=== PATIENT | male | born 1940 | race Caucasian/White ===

== ENCOUNTER → 2017-10-28 14:49 | Outpatient (CLI) | payer MEDICARE, SELFPAY ==
[2017-10-28 15:26] LABS: Absolute Lymphocyte Count 1.94 X10^3/ul (0.83-4.51); Absolute Neutrophil Count 7.1 X10^3/uL (2.0-7.7); Basophil# 0.02 X10^3/uL; Basophil% 0.2 % (0-1); Eosinophil# 0.31 X10^3/uL; Hematocrit 43.3 % (40-54); Lymphocyte # 1.94 X10^3/ul (4.0); Lymphocyte % 18.7 % (19-41); Mean Corp Hgb Conc 34.6 g/gl (32-36); Mean Corpuscular Hgb 31.8 pg (27.0-32.0); Mean Corpuscular Volume 91.7 fL (80-94); Monocyte# 0.95 X10^3/uL; Monocyte% 9.2 % (0-10); Neutrophil # 7.11 X10^3/uL (2.7-7.7); Neutrophil % 68.6 % (47-70); POSITIVE COUNT NO; POSITIVE DIFFERENTIAL NO; POSITIVE MORPHOLOGY NO; Platelet Count 312 K/mm3 (150-450); RBC Distribution Width CV 12.6 % (11.6-14.6); RBC Distribution Width SD 41.3 fl (35.1-43.9); Red Blood Count 4.72 M/mm3 (4.6-6.2); White Blood Count 10.4 K/mm3 (4.4-11.0)
[2017-10-28 16:28] LABS: ALB/GLOB Ratio 0.9 RATIO (0.9-2.4); AST(SGOT) 25 U/L (15-37); Alanine Aminotransfer ALT/SGPT 31 U/L (16-61); Albumin, Serum 3.7 g/dL (3.2-5.0); Alkaline Phosphatase 128 U/L (45-117); Anion Gap 6 (5-15); BUN 18 mg/dL (7-18); BUN/Creat Ratio 11.5 RATIO (10-20); Calcium,Total 9.3 mg/dL (8.5-10.1); Chloride 103 mmol/L (98-107); Creatinine, Serum 1.56 mg/dL (0.70-1.30); EST Glomerular Filtration Rate 46 mL/min (>60); Est Glom Filt Rate - Afr Amer 56 mL/min (>60); Globulin 3.9 g/dL (2.2-4.2); Glucose 96 mg/dL (74-106); Potassium 4.6 mmol/L (3.5-5.1); Protein, Total 7.6 g/dL (6.4-8.2); Sodium Level 138 mmol/L (136-145); Thyroid Stim Hormone (TSH) 1.92 uIU/mL (0.358-3.74)
[2017-10-29 02:55] LABS: Rapid Plasmin Reagin (RPR) NONREACTIVE (NONREACTIVE)
[2017-10-29 08:42] LABS: Vitamin B12 577 pg/mL (211-911); Vitamin D,25 Hydroxy 35.4 ng/mL (29.95-100.01)
== END ==
PROVIDERS: Visit Provider Family Medicine Geriatric Medicine
DX: E11.9 Type 2 diabetes mellitus without complications (principal); F05 Delirium due to known physiological condition; E55.9 Vitamin D deficiency, unspecified; N39.0 Urinary tract infection, site not specified
CPT/HCPCS: 36415; 80053; 82306; 82607; 82746; 84443; 85025; 86592; 87077; 87086; 87088; 87186

== ENCOUNTER → 2017-11-10 09:25 | Outpatient (CLI) | payer MEDICARE, SELFPAY ==
--- NOTE | 2017-11-10 09:27 | AAVD_ITS ---
Reason For Study: AAA screening Aorta Measurements Aorta Doppler Measurements Proximal aorta measures2.0 x 2.0cm. in cross- Peak systolic flow velocities within the proximal sectional axis. aorta measure 62.0 cm/sec. Proximal aorta measures1.9cm. in longitudinal Peak systolic flow velocities within the mid axis. aorta measure 73.0 cm/sec. Mid aorta measures1.6 x 1.7cm. in cross-sectionalPeak systolic flow velocities within the distal axis. aorta measure 93.0 cm/sec. Mid aorta measures1.6cm. in longitudinal axis. Distal aorta measures1.3 x 1.5cm. in cross- sectional axis. Distal aorta measures1.3cm. in longitudinal axis. Left Iliac Artery Left iliac artery measures .82 cm. in the longitudinal axis. Left iliac artery measures .85 x .81 cm. in the cross-sectional axis. Peak systolic velocity in the left iliac artery measures 104.0 cm/sec. Right Iliac Artery Right iliac artery measures .81 cm. in the longitudinal axis. Right iliac artery measures .87 x .89 cm. in the cross-sectional axis. Peak systolic velocity in the right iliac artery measures 101.0 cm/sec. Procedure Aorta IVC Iliac vasculature or bypass grafts [id number]. Exam performed in department. Interpretation Summary The intra-abdominal aorta appears normal in caliber, without evidence of aneurysmal dilatation. The iliac arteries are also normal in size bilaterally. The intra-abdominal aorta and iliac arteries are patent, demonstrating normal, pulsatile arterial flow and normal peak systolic velocities. Ordering Physician: Gilbert Andrea Referring Physician: Gilbert Andrea Chi Performed By: Jaylene Maher RVT
== END ==
PROVIDERS: Family Provider Family Medicine Geriatric Medicine; PCP Family Medicine Geriatric Medicine; Visit Provider Family Medicine Geriatric Medicine
DX: I71.4 Abdominal aortic aneurysm, without rupture (principal)
CPT/HCPCS: 93978

== ENCOUNTER → 2018-01-04 11:20 | Outpatient (CLI) | payer MEDICARE, SELFPAY ==
[2018-01-04 12:54] LABS: Microalbumin:Creatinine Ratio 42.4 mg/g CRE (<30 mg/g CRE)
== END ==
PROVIDERS: Family Provider Family Medicine Geriatric Medicine; PCP Family Medicine Geriatric Medicine; Visit Provider Internal Medicine Nephrology
DX: R80.9 Proteinuria, unspecified (principal)
CPT/HCPCS: 82043; 82570

== ENCOUNTER → 2018-01-06 10:12 | Outpatient (CLI) | payer MEDICARE, SELFPAY ==
--- NOTE | 2018-01-06 10:15 | US_ITS ---
STUDY: RENAL ULTRASOUND - COMPLETE REASON FOR EXAM: Male, 77 years old. Renal cell carcinoma TECHNIQUE: Ultrasound evaluation of the kidneys was performed with real-time and static sinclair-scale imaging. COMPARISON: None. FINDINGS: RIGHT KIDNEY: Normal location of the right kidney, which is normal in size. The right kidney measures 9.6 x 4.8 x 5.0 cm. There is a normal cortex of the right kidney. The renal cortex measures 1.5 cm. There is a 1.1 x 1.1 x 1.0 cm hypoechoic/anechoic region of the right kidney. There are no right renal calculi. There is no right hydronephrosis. DISTAL RIGHT URETER: There is non-visualization of the distal right ureter. There is no demonstrated right ureterovesical junction calculus. There is no demonstrated right ureteral jet. LEFT KIDNEY: Normal location of the left kidney, which is normal in size. The left kidney measures 11.9 x 4.0 x 4.6 cm. There is a normal cortex of the left kidney. The renal cortex measures 1.5 cm. There are 2 left renal cysts measuring 1.1 x 1.3 x 1.0 cm and 1.5 x 1.5 x 1.4 cm. There are no left renal calculi. There is no left hydronephrosis. DISTAL LEFT URETER: There is non-visualization of the distal left ureter. There is no demonstrated left ureterovesical junction calculus. There is no demonstrated left ureteral jet. US/Kidney and Bladder IMPRESSION: 2 left renal cysts as detailed above. Hypoechoic/anechoic focus of the right kidney measuring 1.1 x 1.1 x 1.0 cm indeterminate for solid versus cystic structure. If clinically indicated, CT of the kidneys with and without contrast would be helpful for further evaluation. Electronically Signed: Aleksandr Flores MD at 16:06 EDT , Service support ,
== END ==
PROVIDERS: Family Provider Family Medicine Geriatric Medicine; PCP Family Medicine Geriatric Medicine; Visit Provider Internal Medicine Nephrology
DX: C64.9 Malignant neoplasm of unspecified kidney, except renal pelvis (principal)
CPT/HCPCS: 76770

== ENCOUNTER → 2018-04-19 15:56 | Outpatient (CLI) | payer MEDICARE, SELFPAY ==
[2018-04-19 17:14] LABS: Absolute Neutrophil Count 7.4 X10^3/uL (2.0-7.7); Basophil# 0.04 X10^3/uL; Basophil% 0.4 % (0-1); Eosinophil# 0.42 X10^3/uL; Eosinophils% 3.8 % (0-5); Hematocrit 44.5 % (40-54); Lymphocyte % 18.3 % (19-41); Mean Corp Hgb Conc 33.7 g/gl (32-36); Mean Corpuscular Hgb 31.9 pg (27.0-32.0); Mean Corpuscular Volume 94.7 fL (80-94); Mean Platelet Vol. 9.3 fl (6.2-12.0); Monocyte# 1.03 X10^3/uL; Monocyte% 9.4 % (0-10); Neutrophil # 7.39 X10^3/uL (2.7-7.7); Neutrophil % 67.6 % (47-70); Platelet Count 327 K/mm3 (150-450); RBC Distribution Width CV 13.5 % (11.6-14.6); RBC Distribution Width SD 45.1 fl (35.1-43.9); White Blood Count 10.9 K/mm3 (4.4-11.0)
[2018-04-19 17:18] LABS: POSITIVE COUNT NO; POSITIVE DIFFERENTIAL NO; POSITIVE MORPHOLOGY NO
[2018-04-19 18:01] LABS: ALB/GLOB Ratio 0.8 RATIO (0.9-2.4); AST(SGOT) 29 U/L (15-37); Alanine Aminotransfer ALT/SGPT 47 U/L (16-61); Albumin, Serum 3.3 g/dL (3.2-5.0); Alkaline Phosphatase 171 U/L (45-117); Anion Gap 9 (5-15); BUN 22 mg/dL (7-18); Calcium,Total 10.1 mg/dL (8.5-10.1); Chloride 107 mmol/L (98-107); Creatinine, Serum 1.57 mg/dL (0.70-1.30); EST Glomerular Filtration Rate 46 mL/min (>60); Est Glom Filt Rate - Afr Amer 56 mL/min (>60); Globulin 3.9 g/dL (2.2-4.2); Glucose 90 mg/dL (74-106); Protein, Total 7.2 g/dL (6.4-8.2); Sodium Level 144 mmol/L (136-145); Thyroid Stim Hormone (TSH) 2.05 uIU/mL (0.358-3.74)
[2018-04-20 08:52] LABS: Vitamin D,25 Hydroxy 45.4 ng/mL (29.95-100.01)
== END ==
PROVIDERS: Family Provider Family Medicine Geriatric Medicine; PCP Family Medicine Geriatric Medicine; Visit Provider Family Medicine Geriatric Medicine
DX: E11.9 Type 2 diabetes mellitus without complications (principal); I10 Essential (primary) hypertension; E55.9 Vitamin D deficiency, unspecified
CPT/HCPCS: 36415; 80053; 82306; 84443; 85025

== ENCOUNTER → 2018-07-18 14:22 | Outpatient (CLI) | payer MEDICARE, SELFPAY ==
[2018-07-18 17:25] LABS: Absolute Lymphocyte Count 1.83 X10^3/ul (0.83-4.51); Absolute Neutrophil Count 6.9 X10^3/uL (2.0-7.7); Basophil# 0.03 X10^3/uL; Basophil% 0.3 % (0-1); Eosinophil# 0.22 X10^3/uL; Eosinophils% 2.2 % (0-5); Hematocrit 46.4 % (40-54); Hemoglobin 15.5 g/dl (13.0-16.5); Lymphocyte # 1.83 X10^3/ul (4.0); Lymphocyte % 18.4 % (19-41); Mean Corp Hgb Conc 33.4 g/gl (32-36); Mean Corpuscular Volume 95.9 fL (80-94); Mean Platelet Vol. 9.4 fl (6.2-12.0); Monocyte# 0.92 X10^3/uL; Monocyte% 9.3 % (0-10); Neutrophil # 6.89 X10^3/uL (2.7-7.7); Neutrophil % 69.5 % (47-70); Platelet Count 301 K/mm3 (150-450); RBC Distribution Width CV 13.2 % (11.6-14.6); RBC Distribution Width SD 44.9 fl (35.1-43.9); Red Blood Count 4.84 M/mm3 (4.6-6.2); White Blood Count 9.9 K/mm3 (4.4-11.0)
[2018-07-18 17:41] LABS: AST(SGOT) 33 U/L (15-37); Alanine Aminotransfer ALT/SGPT 50 U/L (16-61); Albumin, Serum 3.7 g/dL (3.2-5.0); Alkaline Phosphatase 166 U/L (45-117); Anion Gap 11 (5-15); BUN 19 mg/dL (7-18); BUN/Creat Ratio 11.2 RATIO (10-20); Calcium,Total 9.8 mg/dL (8.5-10.1); Chloride 105 mmol/L (98-107); EST Glomerular Filtration Rate 42 mL/min (>60); Est Glom Filt Rate - Afr Amer 51 mL/min (>60); Globulin 3.8 g/dL (2.2-4.2); Glucose 87 mg/dL (74-106); Potassium 4.6 mmol/L (3.5-5.1); Protein, Total 7.5 g/dL (6.4-8.2); Sodium Level 142 mmol/L (136-145); Thyroid Stim Hormone (TSH) 2.03 uIU/mL (0.358-3.74)
[2018-07-18 17:44] LABS: Vitamin D,25 Hydroxy 42.4 ng/mL (29.95-100.01)
[2018-07-18 17:45] LABS: POSITIVE COUNT NO; POSITIVE DIFFERENTIAL NO; POSITIVE MORPHOLOGY NO
== END ==
PROVIDERS: Family Provider Family Medicine Geriatric Medicine; PCP Family Medicine Geriatric Medicine; Visit Provider Family Medicine Geriatric Medicine
DX: E11.9 Type 2 diabetes mellitus without complications (principal); I10 Essential (primary) hypertension; E55.9 Vitamin D deficiency, unspecified
CPT/HCPCS: 36415; 80053; 82306; 84443; 85025

== ENCOUNTER → 2018-11-16 14:11 | Outpatient (CLI) | payer MEDICARE, SELFPAY ==
[2018-07-08 12:55] VITALS: BMI 29.7
[2018-11-16 15:49] LABS: Absolute Lymphocyte Count 2.13 X10^3/ul (0.83-4.51); Absolute Neutrophil Count 7.1 X10^3/uL (2.0-7.7); Basophil# 0.04 X10^3/uL; Basophil% 0.4 % (0-1); Eosinophil# 0.26 X10^3/uL; Eosinophils% 2.5 % (0-5); Hematocrit 47.2 % (40-54); Hemoglobin 15.3 g/dl (13.0-16.5); Lymphocyte # 2.13 X10^3/ul (4.0); Lymphocyte % 20.6 % (19-41); Mean Corp Hgb Conc 32.4 g/gl (32-36); Mean Corpuscular Hgb 31.5 pg (27.0-32.0); Mean Corpuscular Volume 97.1 fL (80-94); Mean Platelet Vol. 9.3 fl (6.2-12.0); Monocyte# 0.81 X10^3/uL; Monocyte% 7.8 % (0-10); Neutrophil # 7.07 X10^3/uL (2.7-7.7); Neutrophil % 68.5 % (47-70); Platelet Count 323 K/mm3 (150-450); RBC Distribution Width CV 13.3 % (11.6-14.6); RBC Distribution Width SD 46.7 fl (35.1-43.9); Red Blood Count 4.86 M/mm3 (4.6-6.2); White Blood Count 10.3 K/mm3 (4.4-11.0)
[2018-11-16 15:54] LABS: ALB/GLOB Ratio 0.9 RATIO (0.9-2.4); AST(SGOT) 34 U/L (15-37); Alanine Aminotransfer ALT/SGPT 48 U/L (16-61); Albumin, Serum 3.4 g/dL (3.2-5.0); Alkaline Phosphatase 172 U/L (45-117); Anion Gap 9 (5-15); BUN 16 mg/dL (7-18); BUN/Creat Ratio 9.8 RATIO (10-20); Calcium,Total 9.2 mg/dL (8.5-10.1); Chloride 107 mmol/L (98-107); Creatinine, Serum 1.64 mg/dL (0.70-1.30); EST Glomerular Filtration Rate 44 mL/min (>60); Est Glom Filt Rate - Afr Amer 53 mL/min (>60); Globulin 3.8 g/dL (2.2-4.2); Glucose 144 mg/dL (74-106); Potassium 3.9 mmol/L (3.5-5.1); Protein, Total 7.2 g/dL (6.4-8.2); Sodium Level 143 mmol/L (136-145); Thyroid Stim Hormone (TSH) 2.13 uIU/mL (0.358-3.74)
[2018-11-16 15:57] LABS: Vitamin D,25 Hydroxy 37.9 ng/mL (29.95-100.01)
[2018-11-16 16:30] LABS: POSITIVE COUNT NO; POSITIVE DIFFERENTIAL NO; POSITIVE MORPHOLOGY NO
== END ==
PROVIDERS: Family Provider Family Medicine Geriatric Medicine; PCP Family Medicine Geriatric Medicine; Visit Provider Family Medicine Geriatric Medicine
DX: E11.9 Type 2 diabetes mellitus without complications (principal); I10 Essential (primary) hypertension; E55.9 Vitamin D deficiency, unspecified
CPT/HCPCS: 36415; 80053; 82306; 84443; 85025

== ENCOUNTER → 2018-11-29 13:41 | Outpatient (CLI) | payer MEDICARE, SELFPAY ==
[2018-07-08 12:55] VITALS: BMI 29.7
--- NOTE | 2018-11-29 13:45 | ECHOD_ITS ---
Reason For Study: SOB Procedure This was a 2D Doppler, Color Flow transthoracic echocardiogram. The study was technically difficult. Exam performed in department. Left Ventricle Normal LV size. Left ventricular systolic function is normal. The estimated ejection fraction is 60 %. No regional wall motion abnormalities noted. Right Ventricle Normal RV size. Normal systolic function. Atria Normal left atrium. Normal right atrium. No doppler evidence for ASD. Mitral Valve There is no mitral annular calcification. Normal mitral valve. Mild (1+) mitral valve insufficiency. Tricuspid Valve Normal tricuspid valve. Trivial tricuspid valve insufficiency. Right ventricular systolic pressure estimated to be 21 mmHg. Aortic Valve Trisinus/trileaflet aortic valve. Moderate focal aortic valve calcification. Pulmonic Valve The pulmonic valve is not well visualized. Trivial pulmonic valve insufficiency. Great Vessels Normal sized aortic root. Pericardium/Pleural No pericardial effusion. MMode/2D Measurements & Calculations LVIDd: 4.1 cm IVSd: 0.97 cm Ao root diam: 3.1 cm LVIDs: 2.7 cm LVPWd: 0.86 cm RVDd: 3.4 cm FS: 33.9 % LAV(MOD-bp): 42.9 ml LA A4 area: 16.3 cm2 LA dimension(2D): 3.7 cm LAV(MOD-bp) Indexed: 21.5 ml/m2 LAV(MOD-sp2): 41.4 ml LAV(MOD-sp4): 41.6 ml RA A4 area: 16.8 cm2 Doppler Measurements & Calculations MV E max julian: 66.3 cm/sec Lat Peak E' Julian: 5.2 cm/sec Med Peak E' Julian: 5.0 cm/sec MV A max julian: 54.4 cm/sec E/E' lat: 12.7 E/E' med: 13.2 MV E/A: 1.2 Ao V2 max: 137.1 cm/sec LV V1 max: 80.6 cm/sec PA V2 max: 90.4 cm/sec Ao max P.5 mmHg LV V1 max P.6 mmHg TR max julian: 203.7 cm/sec TR max P.6 mmHg Interpretation Summary The study was technically difficult. Left ventricular systolic function is normal. The estimated ejection fraction is 60 %. Mild (1+) mitral valve insufficiency. Trivial tricuspid valve insufficiency. Moderate focal aortic valve calcification. Trivial pulmonic valve insufficiency. Right ventricular systolic pressure estimated to be 21 mmHg. Transmitral diastolic flow velocities suggest diastolic dysfunction (pseudonormal pattern). Ordering Physician: Gilbert Andrea Referring Physician: Gilbert Andrea Chi Performed By: Marisol Howell, AARON, RVT
== END ==
PROVIDERS: Family Provider Family Medicine Geriatric Medicine; PCP Family Medicine Geriatric Medicine; Referring Provider Family Medicine Geriatric Medicine; Visit Provider Family Medicine Geriatric Medicine
DX: R06.02 Shortness of breath (principal)
CPT/HCPCS: 93306

== ENCOUNTER → 2019-01-17 13:44 | Outpatient (CLI) | payer MEDICARE, SELFPAY ==
[2019-01-05 15:29] VITALS: BMI 29.9
[2019-01-17 16:25] LABS: AST(SGOT) 32 U/L (15-37); Alanine Aminotransfer ALT/SGPT 47 U/L (16-61); Albumin, Serum 3.5 g/dL (3.2-5.0); Alkaline Phosphatase 164 U/L (45-117); Bilirubin, Direct 0.17 mg/dL (0.00-0.30); Cholesterol 162 mg/dL (200); Globulin 3.7 g/dL (2.2-4.2); High Density Lipoprotein 35 mg/dL; Protein, Total 7.2 g/dL (6.4-8.2); Triglycerides 210 mg/dL; Very Low Density Lipoprotein 42 mg/dL (5-40)
== END ==
PROVIDERS: Family Provider Family Medicine Geriatric Medicine; PCP Family Medicine Geriatric Medicine; Referring Provider Internal Medicine Cardiovascular Disease; Visit Provider Internal Medicine Cardiovascular Disease
DX: E78.5 Hyperlipidemia, unspecified (principal); I25.10 Atherosclerotic heart disease of native coronary artery without angina pectoris; E66.9 Obesity, unspecified
CPT/HCPCS: 36415; 80061; 80076

== ENCOUNTER → 2019-01-26 11:10 | Outpatient (CLI) | payer MEDICARE, SELFPAY ==
[2019-01-05 15:29] VITALS: BMI 29.9
[2019-01-26 12:32] LABS: Absolute Lymphocyte Count 1.39 X10^3/ul (0.83-4.51); Absolute Neutrophil Count 7.6 X10^3/uL (2.0-7.7); Basophil# 0.02 X10^3/uL; Basophil% 0.2 % (0-1); Eosinophil# 0.23 X10^3/uL; Eosinophils% 2.3 % (0-5); Hematocrit 46.1 % (40-54); Hemoglobin 15.3 g/dl (13.0-16.5); Lymphocyte # 1.39 X10^3/ul (4.0); Lymphocyte % 14.1 % (19-41); Mean Corp Hgb Conc 33.2 g/gl (32-36); Mean Corpuscular Hgb 31.7 pg (27.0-32.0); Mean Corpuscular Volume 95.4 fL (80-94); Mean Platelet Vol. 9.4 fl (6.2-12.0); Monocyte# 0.66 X10^3/uL; Monocyte% 6.7 % (0-10); Neutrophil # 7.57 X10^3/uL (2.7-7.7); Neutrophil % 76.6 % (47-70); Platelet Count 267 K/mm3 (150-450); RBC Distribution Width CV 12.8 % (11.6-14.6); RBC Distribution Width SD 44.6 fl (35.1-43.9); Red Blood Count 4.83 M/mm3 (4.6-6.2); White Blood Count 9.9 K/mm3 (4.4-11.0)
[2019-01-26 12:36] LABS: POSITIVE COUNT NO; POSITIVE DIFFERENTIAL NO; POSITIVE MORPHOLOGY NO
[2019-01-26 12:55] LABS: ALB/GLOB Ratio 0.8 RATIO (0.9-2.4); AST(SGOT) 29 U/L (15-37); Alanine Aminotransfer ALT/SGPT 47 U/L (16-61); Albumin, Serum 3.2 g/dL (3.2-5.0); Alkaline Phosphatase 167 U/L (45-117); Anion Gap 10 (5-15); BUN 14 mg/dL (7-18); BUN/Creat Ratio 7.7 RATIO (10-20); Calcium,Total 9.2 mg/dL (8.5-10.1); Chloride 108 mmol/L (98-107); Creatinine, Serum 1.83 mg/dL (0.70-1.30); EST Glomerular Filtration Rate 38 mL/min (>60); Est Glom Filt Rate - Afr Amer 47 mL/min (>60); Globulin 3.8 g/dL (2.2-4.2); Glucose 165 mg/dL (74-106); Sodium Level 144 mmol/L (136-145); Thyroid Stim Hormone (TSH) 2.05 uIU/mL (0.358-3.74)
== END ==
PROVIDERS: Family Provider Family Medicine Geriatric Medicine; PCP Family Medicine Geriatric Medicine; Visit Provider Family Medicine Geriatric Medicine
DX: F05 Delirium due to known physiological condition (principal)
CPT/HCPCS: 36415; 80053; 84443; 85025

== ENCOUNTER → 2019-05-17 11:26 | Outpatient (CLI) | payer MEDICARE, SELFPAY ==
[2019-01-05 15:29] VITALS: BMI 29.9
[2019-05-17 12:43] LABS: Absolute Lymphocyte Count 1.49 X10^3/uL (0.83-4.51); Basophil# 0.04 X10^3/uL; Basophil% 0.5 % (0-1); Eosinophil# 0.14 X10^3/uL; Eosinophils% 1.7 % (0-5); Hematocrit 46.9 % (40-54); Hemoglobin 15.5 g/dL (13.0-16.5); Lymphocyte # 1.49 X10^3/ul (4.0); Lymphocyte % 18.3 % (19-41); Mean Corpuscular Hgb 31.7 pg (27.0-32.0); Mean Corpuscular Volume 95.9 fL (80-94); Mean Platelet Vol. 9.3 fl (6.2-12.0); Monocyte# 0.44 X10^3/uL; Monocyte% 5.4 % (0-10); NRBC Flagged by Analyzer 0 % (0-5); Neutrophil # 6.02 X10^3/uL (2.7-7.7); Neutrophil % 73.9 % (47-70); Platelet Count 304 K/mm3 (150-450); RBC Distribution Width CV 12.4 % (11.6-14.6); RBC Distribution Width SD 43.2 fl (35.1-43.9); Red Blood Count 4.89 M/mm3 (4.6-6.2); White Blood Count 8.2 K/mm3 (4.4-11.0)
[2019-05-17 13:02] LABS: Vitamin D,25 Hydroxy 47.4 ng/mL (29.95-100.01)
[2019-05-17 13:27] LABS: ALB/GLOB Ratio 0.9 RATIO (0.9-2.4); AST(SGOT) 29 U/L (15-37); Alanine Aminotransfer ALT/SGPT 34 U/L (16-61); Albumin, Serum 3.3 g/dL (3.2-5.0); Alkaline Phosphatase 187 U/L (45-117); Anion Gap 6 (5-15); BUN 16 mg/dL (7-18); BUN/Creat Ratio 8.9 RATIO (10-20); Calcium,Total 9.2 mg/dL (8.5-10.1); Chloride 108 mmol/L (98-107); Creatinine, Serum 1.79 mg/dL (0.70-1.30); EST Glomerular Filtration Rate 39 mL/min (>60); Est Glom Filt Rate - Afr Amer 48 mL/min (>60); Globulin 3.8 g/dL (2.2-4.2); Glucose 234 mg/dL (74-106); Potassium 4.2 mmol/L (3.5-5.1); Protein, Total 7.1 g/dL (6.4-8.2); Sodium Level 140 mmol/L (136-145)
== END ==
PROVIDERS: Family Provider Family Medicine Geriatric Medicine; PCP Family Medicine Geriatric Medicine; Visit Provider Family Medicine Geriatric Medicine
DX: E11.9 Type 2 diabetes mellitus without complications (principal); N39.0 Urinary tract infection, site not specified; E55.9 Vitamin D deficiency, unspecified
CPT/HCPCS: 36415; 80053; 82306; 84443; 85025; 87086; 87088

== ENCOUNTER → 2019-06-26 15:46 | Outpatient (CLI) | payer MEDICARE, SELFPAY ==
[2019-01-05 15:29] VITALS: BMI 29.9
[2019-06-26 17:28] LABS: Absolute Lymphocyte Count 1.35 X10^3/uL (0.83-4.51); Absolute Neutrophil Count 9.1 X10^3/uL (2.0-7.7); Basophil# 0.07 X10^3/uL; Basophil% 0.6 % (0-1); Eosinophils% 1.7 % (0-5); Hematocrit 48.6 % (40-54); Lymphocyte # 1.35 X10^3/ul (4.0); Lymphocyte % 11.7 % (19-41); Mean Corp Hgb Conc 32.9 g/dL (32-36); Mean Corpuscular Hgb 31.5 pg (27.0-32.0); Mean Corpuscular Volume 95.7 fL (80-94); Mean Platelet Vol. 9.1 fl (6.2-12.0); Monocyte# 0.78 X10^3/uL; Monocyte% 6.7 % (0-10); NRBC Flagged by Analyzer 0 % (0-5); Neutrophil # 9.13 X10^3/uL (2.7-7.7); Platelet Count 306 K/mm3 (150-450); RBC Distribution Width CV 12.6 % (11.6-14.6); RBC Distribution Width SD 44.3 fl (35.1-43.9); Red Blood Count 5.08 M/mm3 (4.6-6.2); White Blood Count 11.6 K/mm3 (4.4-11.0)
--- NOTE | 2019-06-26 17:30 | RAD_ITS ---
STUDY: X-RAY - ABDOMEN/PELVIS REASON FOR EXAM: Male, 78 years old. Patient states he has no abdominal complains, no change in bowel habits TECHNIQUE: AP supine and upright views of the abdomen and pelvis. COMPARISON: None. FINDINGS: Normal visualized lung bases. There is an unremarkable bowel gas pattern. There is no demonstrated free abdominal air. The visualized liver, spleen and kidneys are grossly normal in size and morphology. Normal soft tissue structures. There are diffuse degenerative changes of the visualized lumbar spine. RAD/Abd Inc Decub and/or Erect IMPRESSION: No definite acute or significant abnormality seen. Electronically Signed: Tanmay Saldivar MD at 17:47 EDT , Service support ,
[2019-06-26 17:50] LABS: ALB/GLOB Ratio 0.8 RATIO (0.9-2.4); AST(SGOT) 28 U/L (15-37); Alanine Aminotransfer ALT/SGPT 43 U/L (16-61); Albumin, Serum 3.2 g/dL (3.2-5.0); Alkaline Phosphatase 174 U/L (45-117); Anion Gap 6 (5-15); BUN 15 mg/dL (7-18); BUN/Creat Ratio 8.5 RATIO (10-20); Calcium,Total 9.2 mg/dL (8.5-10.1); Chloride 105 mmol/L (98-107); Creatinine, Serum 1.77 mg/dL (0.70-1.30); EST Glomerular Filtration Rate 40 mL/min (>60); Est Glom Filt Rate - Afr Amer 48 mL/min (>60); Globulin 3.9 g/dL (2.2-4.2); Glucose 218 mg/dL (74-106); Potassium 4.3 mmol/L (3.5-5.1); Protein, Total 7.1 g/dL (6.4-8.2); Sodium Level 140 mmol/L (136-145); Thyroid Stim Hormone (TSH) 0.99 uIU/mL (0.358-3.74)
== END ==
PROVIDERS: Family Provider Family Medicine Geriatric Medicine; PCP Family Medicine Geriatric Medicine; Referring Provider Family Medicine Geriatric Medicine; Visit Provider Family Medicine Geriatric Medicine
DX: F05 Delirium due to known physiological condition (principal); N39.0 Urinary tract infection, site not specified; R53.83 Other fatigue; K56.41 Fecal impaction
CPT/HCPCS: 36415; 74019; 80053; 84443; 85025; 87086; 87088

== ENCOUNTER 2019-07-16 15:53 | Emergency (ER) | payer MEDICARE, SELFPAY ==
[2019-01-05 15:29] VITALS: BMI 29.9
[2019-07-16 15:54] VITALS: BP 125/67; PULSE 111; RESP 24; TEMP 36.6; O2SAT 98; BMI 28.0
--- NOTE | 2019-07-16 16:20 | EKG12_ITS ---
Test Reason : CONFUSION Blood Pressure : / mmHG Vent. Rate : 087 BPM Atrial Rate : 087 BPM P-R Int : 160 ms QRS Dur : 068 ms QT Int : 386 ms P-R-T Axes : 064 068 055 degrees QTc Int : 464 ms Normal sinus rhythm with sinus arrhythmia Normal ECG Confirmed by GAUDENCIO BELTRAN MD ([id number]), magazine editor YANET FLOYD ([id number]) on 07/18/2019 11:45:29 AM Referred By: IDA
--- NOTE | 2019-07-16 16:20 | CT_ITS ---
STUDY: CT BRAIN WITHOUT CONTRAST REASON FOR EXAM: Male, 78 years old. Altered mental status RADIATION DOSAGE (If Supplied By Facility): CTDIvol = ( 44.99 ) mGy, DLP = ( 745.49 ) mGycm TECHNIQUE: Transaxial CT imaging of the brain was performed without administration of intravenous contrast material. Individualized dose optimization techniques were used for this CT. COMPARISON: 07/15/2017 FINDINGS: There is no acute bleed or infarct. There are normal white matter tracts. The ventricles are normal in configuration. There is no hydrocephalus. The visualized paranasal sinuses are clear. The mastoid air cells are well aerated. There is no skull fracture. CT/Brain/Head without Contrast IMPRESSION: No acute intracranial abnormality. Electronically Signed: Kenneth Valdez, at 18:15 EST Tel , Service support ,
--- NOTE | 2019-07-16 16:20 | RAD_ITS ---
STUDY: X-RAY CHEST REASON FOR EXAM: Male, 78 years old. Fusion TECHNIQUE: Frontal view of the chest COMPARISON: 10/22/2016 FINDINGS: The lungs are clear. There are no pleural effusions. There is no pneumothorax. The heart is normal in size. The visualized osseous structures are within normal limits. RAD/Chest 1 View (Portable) IMPRESSION: No acute thoracic pathology. Electronically Signed: Kenneth Valdez, at 16:48 EST Tel , Service support ,
[2019-07-16 16:38] LABS: Absolute Lymphocyte Count 1.95 X10^3/uL (0.83-4.51); Absolute Neutrophil Count 4.7 X10^3/uL (2.0-7.7); Basophil# 0.06 X10^3/uL; Basophil% 0.8 % (0-1); Eosinophil# 0.43 X10^3/uL; Eosinophils% 5.5 % (0-5); Hematocrit 45.9 % (40-54); Hemoglobin 15.3 g/dL (13.0-16.5); Lymphocyte # 1.95 X10^3/ul (4.0); Mean Corp Hgb Conc 33.3 g/dL (32-36); Mean Corpuscular Hgb 31.4 pg (27.0-32.0); Mean Corpuscular Volume 94.1 fL (80-94); Mean Platelet Vol. 8.6 fl (6.2-12.0); Monocyte% 7.7 % (0-10); NRBC Flagged by Analyzer 0 % (0-5); Neutrophil # 4.72 X10^3/uL (2.7-7.7); Neutrophil % 60.6 % (47-70); Platelet Count 329 K/mm3 (150-450); RBC Distribution Width CV 12.7 % (11.6-14.6); RBC Distribution Width SD 43.6 fl (35.1-43.9); Red Blood Count 4.88 M/mm3 (4.6-6.2); White Blood Count 7.8 K/mm3 (4.4-11.0)
[2019-07-16 16:44] LABS: Bacteria 0 SEEN /hpf (None Seen); Mucous, Urine 0 SEEN /hpf (<or=2+)
[2019-07-16 16:48] LABS: Color, Urine Yellow (Yellow); Glucose, Dipstick Normal (Normal); Ketone-Dipstick 5 mg/dl (Negative); Leukocyte Esterase-Dipstick 100 /ul (Negative); Nitrite-Dipstick Negative (Negative); Occult Blood-Urine 10 /ul (Negative); Protein-Dipstick 30 mg/dl (Negative); Specific Gravity, Urine 1.025 (1.002-1.030); Urine Bilirubin Dipstick Negative (Negative); Urine Clarity Cloudy (Clear); Urine Urobilinogen Normal (Normal)
[2019-07-16 16:52] LABS: ALB/GLOB Ratio 0.8 RATIO (0.9-2.4); AST(SGOT) 31 U/L (15-37); Alanine Aminotransfer ALT/SGPT 40 U/L (16-61); Albumin, Serum 3.2 g/dL (3.2-5.0); Alkaline Phosphatase 152 U/L (45-117); Anion Gap 9 (5-15); BUN 11 mg/dL (7-18); Calcium,Total 9.1 mg/dL (8.5-10.1); Chloride 104 mmol/L (98-107); Creatinine, Serum 1.58 mg/dL (0.70-1.30); EST Glomerular Filtration Rate 45 mL/min (>60); Est Glom Filt Rate - Afr Amer 55 mL/min (>60); Estimated Creatinine Clearance 39.77 ml/min; Globulin 3.9 g/dL (2.2-4.2); Glucose 196 mg/dL (74-106); Potassium 4.1 mmol/L (3.5-5.1); Protein, Total 7.1 g/dL (6.4-8.2); Sodium Level 140 mmol/L (136-145)
[2019-07-16 16:54] LABS: Red Blood Cells-Urine 0-5 SEEN /hpf (0-5); Squamous Epithelial Cells - UA 0-5 SEEN /hpf (0-5); White Blood Cells 10-25 SEEN /hpf (0-5)
[2019-07-16 17:03] LABS: Amphetamine Urine VISTA NEGATIVE (<1000 ng/mL); Barbiturate Urine VISTA NEGATIVE (< 200 ng/mL); Benzodiazepine Urine VISTA NEGATIVE (< 200 ng/mL); Cocaine Urine VISTA NEGATIVE (< 300 ng/mL); Ecstacy Urine VISTA NEGATIVE (< 500 ng/mL); Methadone Urine VISTA NEGATIVE (< 300 ng/mL); PCP Urine VISTA NEGATIVE (< 25 ng/mL); THC Urine VISTA NEGATIVE (< 50 ng/mL); Vista UDS pH Range 6
[2019-07-16 17:22] VITALS: RESP 14
[2019-07-16 17:49] LABS: Thyroid Stim Hormone (TSH) 1.73 uIU/mL (0.358-3.74)
--- NOTE | 2019-07-16 18:27 | ED.DCSUM_ITS ---
History of Present Illness Informant: Patient, Family Narrative: 78-year-old male presents with fatigue and slight confusion. History obtained from patient and his . states that he has had chronic fatigue over the last 3 years. He normally sleeps into the afternoon. States that today he slept till 3 PM. This is not unusual for him. States that she felt he seemed confused briefly. Said that he went to the garage looking for food. Denies any other complaints. She himself is alert and oriented x3. He denies any complaints. Denies any headache, chest pain, dyspnea, nausea, vomiting diaphoresis or dyspnea. Denies any dysuria or diarrhea. Of note patient has a history of a cardiac arrest. This happened 3 years ago. He was admitted to [facility], then transferred to [facility]. He then had a CABG. He was found to have an anoxic brain injury. states that his chronic fatigue began at that time. <Philip Ramirez - Last Filed: 07/16/19 19:17> Onset: Today <Dasha Springer - Last Filed: 07/22/19 10:58> Chief Complaint: Confusion Past Medical History Surgical History: - - partial nephrectemy. Smoking Status: Former smoker - Family History Maternal Family History: Family History (Last Reviewed 01/05/19 @ 15:20 by Lidia Santana) Father CAD (coronary artery disease) Family History: Reports: Unknown <Philip Ramirez - Last Filed: 07/16/19 19:17> Past Medical History: - - CAD, CKD, Paroxymal A fib, DM2, Hx V fib arrest, Hx renal cancer Surgical History: - - partial nephrectemy, CABG Lives: Spouse/ Significant Other - Family History Maternal Family History: Family History (Last Reviewed 01/05/19 @ 15:20 by Lidia Santana) Father CAD (coronary artery disease) <Dasha Springer - Last Filed: 07/22/19 10:58> - Allergies and Home Meds Allergies/Adverse Reactions: Allergies Sulfa (Sulfonamide Antibiotics) Allergy (Verified 07/16/19 17:16) Unknown Primary Care Physician: Gilbert Andrea Chi, MD [Primary Care Provider] - 3-5 Days Review of Systems General: Denies: Chills, Fever, Sweats Eyes: Denies: Visual changes - bilaterally, Diplopia ENT: Denies: Rhinorrhea, Sore throat Cardiovascular: Denies: Chest pain, Palpitations Respiratory: Denies: Dyspnea, Cough, Dyspnea on exertion Gastrointestinal: Denies: Abdominal pain, Nausea, Vomiting, Diarrhea, Melena, Hematochezia Genitourinary: Denies: Dysuria, Hematuria, Frequency Musculoskeletal: Denies: Back pain, Extremity Pain Skin: Denies: Rash, Wounds Neurological: Reports: - - Confusion per the . Denies: Headache, Weakness, Numbness <Philip Ramirez - Last Filed: 07/16/19 19:17> General: Reports: Malaise Neurological: Reports: - <Dasha Springer - Last Filed: 07/22/19 10:58> Physical Exam Vital Signs/Narrative: Vital Signs Temp Pulse Resp BP Pulse Ox 07/16/19 17:22 14 07/16/19 15:54 97.9 F 111 H 24 H 125/67 H 98 General: Well nourished, Well developed, No Acute Distress Head: Normocephalic, Atraumatic Eyes: Perrl, EOMI ENT: Moist mucous membranes, No rhinorrhea Neck: Supple, Nontender Cardiovascular: Regular rate, Regular rhythm, No murmurs Respiratory: No distress, CTA bilaterally, Chest nontender Abdomen: Soft, Nontender, Nondistended, Normal bowel sounds Back: Nontender, Normal Inspection Extremities: Nontender, No edema Skin: Normal color, No rash Neurological: Alert, Oriented x3, Cranial nerves II-XII grossly intact, Normal Strength, Normal Sensation, - - alert and oriented x3. No distress. Appears well and nontoxic. No Focal deficits on exam Psychological: Normal affect, Normal Mood <Philip Ramirez - Last Filed: 07/16/19 19:17> Inital Vital Signs reviewed: Yes <Dasha Springer - Last Filed: 07/22/19 10:58> Diagnostic/Tx/Re-eval Clinical Impression(s) from Imaging Studies Brain CT 07/16/19 16:20 IMPRESSION: No acute intracranial abnormality. Electronically Signed: Kenneth Valdez, at 18:15 EST Tel , Service support , Chest X-Ray 07/16/19 16:20 IMPRESSION: No acute thoracic pathology. Electronically Signed: Kenneth Valdez, at 16:48 EST Tel , Service support , Laboratory Data 07/16/19 07/16/19 07/16/19 16:10 16:10 16:10 WBC 7.8 RBC 4.88 Hgb 15.3 Hct 45.9 MCV 94.1 H MCH 31.4 MCHC 33.3 RDW Std Deviation 43.6 RDW Coeff of Iliana 12.7 Plt Count 329 MPV 8.6 Immature Gran % (Auto) 0.400 Neut % (Auto) 60.6 Lymph % (Auto) 25.0 Russell % (Auto) 7.7 Eos % (Auto) 5.5 H Baso % (Auto) 0.8 Absolute Neuts (auto) 4.7 Absolute Lymphs (auto) 1.95 Nucleated RBC % 0 Sodium 140 Potassium 4.1 Chloride 104 Carbon Dioxide 27.0 Anion Gap 9 BUN 11 Creatinine 1.58 H Estim Creat Clear Calc 39.77 Est GFR (MDRD) Af Amer 55 L Est GFR (MDRD) Non-Af 45 L BUN/Creatinine Ratio 7.0 L Glucose 196 H Calcium 9.1 Total Bilirubin 0.70 AST 31 ALT 40 Alkaline Phosphatase 152 H Troponin I < 0.015 Total Protein 7.1 Albumin 3.2 Globulin 3.9 Albumin/Globulin Ratio 0.8 L TSH 1.73 Urine Color Urine Clarity Urine pH Ur Specific [place] Urine Protein Urine Glucose (UA) Urine Ketones Urine Occult Blood Urine Nitrite Urine Bilirubin Urine Urobilinogen Ur Leukocyte Esterase Urine RBC Urine WBC Ur Squamous Epith Cells Urine Bacteria Urine Mucus Urine Opiates Screen Urine Methadone Screen Ur Barbiturates Screen Ur Phencyclidine Scrn Ur Amphetamines Screen U Methamphetamin-MDMA U Benzodiazepines Scrn Urine Cocaine Screen U Cannabinoids Screen Ur Drug Screen Comment 07/16/19 07/16/19 16:38 16:38 WBC RBC Hgb Hct MCV MCH MCHC RDW Std Deviation RDW Coeff of Iliana Plt Count MPV Immature Gran % (Auto) Neut % (Auto) Lymph % (Auto) Russell % (Auto) Eos % (Auto) Baso % (Auto) Absolute Neuts (auto) Absolute Lymphs (auto) Nucleated RBC % Sodium Potassium Chloride Carbon Dioxide Anion Gap BUN Creatinine Estim Creat Clear Calc Est GFR (MDRD) Af Amer Est GFR (MDRD) Non-Af BUN/Creatinine Ratio Glucose Calcium Total Bilirubin AST ALT Alkaline Phosphatase Troponin I Total Protein Albumin Globulin Albumin/Globulin Ratio TSH Urine Color Yellow Urine Clarity Cloudy Urine pH 5.0 Ur Specific [place] 1.025 Urine Protein 30 H Urine Glucose (UA) Normal Urine Ketones 5 H Urine Occult Blood 10 H Urine Nitrite Negative Urine Bilirubin Negative Urine Urobilinogen Normal Ur Leukocyte Esterase 100 H Urine RBC 0-5 SEEN Urine WBC 10-25 SEEN Ur Squamous Epith Cells 0-5 SEEN Urine Bacteria 0 SEEN Urine Mucus 0 SEEN Urine Opiates Screen NEGATIVE Urine Methadone Screen NEGATIVE Ur Barbiturates Screen NEGATIVE Ur Phencyclidine Scrn NEGATIVE Ur Amphetamines Screen NEGATIVE U Methamphetamin-MDMA NEGATIVE U Benzodiazepines Scrn NEGATIVE Urine Cocaine Screen NEGATIVE U Cannabinoids Screen NEGATIVE Ur Drug Screen Comment - EKG Initial EKG Interpretation: - - Sinus rhythm at 87 bpm. MN interval 160, QRS 60, QTc 464. Normal axis. No ST elevation or ST depression. No changes from September 2016 - Medical Decision Making Patient evaluated for confusion. He has a history of chronic fatigue. states this is been going on for years. And really there has been no change recently. States that he was slightly confused. States that this is not abnormal for him. Stated that he want to be evaluated in the emergency department. On my exam he appears well. Alert and oriented x3. No focal deficits on my exam. He is in no distress. Work-up initiated to assess for possible cause. Creatinine is 1.5. This is around patient's baseline. She had no leukocytosis, no anemia. Negative urinalysis, negative troponin, unremarkable EKG. CT brain and chest x-ray were negative. On revaluation patient had no complaints. Is alert and oriented x3. comfortable taking him home. Patient was then discharged home with instructions to follow-up with his primary care provider. <Philip Ramirez - Last Filed: 07/16/19 19:17> Chest X-Ray - ED: 1 View, Read by ED Physician, Read by Radiologist, No Acute Disease - Rhythm Strip Rhythm Strip: Sinus Rhythm Rate: 87 Ectopy: None - EKG Initial EKG Interpretation: - - Medical Decision Making Patient evaluated by myself independent of resident and HPI and ROS performed separately. Agree with above. Patient has slight worsening of his chronic fatigue and slightly ore confused today. states that he went to the garage to look for food. She notes that he has done this in the past. ROS is only positive for fatigue. Physical exam is grossly normal. Patient currently only complains of being tired. states that she was concerned he might have an infection. Work up is largely unremarkable. He has unchanged CKD with no signs of infection. Normal neurologic exam and no meningeal signs. No signs of ACS. Feel that he is stable for outpatient follow up. and patient agreeable with this. They are counseled on signs and symptoms requiring return to the ED. Counseled on importance of outpatient follow up. Patient verbalized agreement and understanding with this plan and was discharged home in stable condition. <Dasha Springer - Last Filed: 07/22/19 10:58> ED Disposition <Philip Ramirez - Last Filed: 07/16/19 19:17> <Dasha Springer - Last Filed: 07/22/19 10:58> - Plan for ED Patient: Disposition: Home or Assisted Living Diagnosis: Fatigue Instructions: Confusion Referrals: Gilbert Andrea Chi, MD [Primary Care Provider] - 3-5 Days
[2019-07-16 18:30] VITALS: PULSE 57
[2019-07-16 18:57] VITALS: BP 116/74; PULSE 76
[2019-07-16 19:00] VITALS: BP 129/77; PULSE 61; O2SAT 98
[2019-07-16 19:24] VITALS: BP 129/77; PULSE 58; RESP 12; O2SAT 97
== END 2019-07-16 19:34 | disposition home or self-care (01) ==
PROVIDERS: Emergency Provider Emergency Medicine; Family Provider Family Medicine Geriatric Medicine; PCP Family Medicine Geriatric Medicine
DX: R53.82 Chronic fatigue, unspecified (principal); I25.2 Old myocardial infarction; Z95.1 Presence of aortocoronary bypass graft; Z87.891 Personal history of nicotine dependence
CPT/HCPCS: 70450; 71045; 80053; 80307; 81001; 84443; 84484; 85025; 93005; 99283; A4216

== ENCOUNTER → 2019-07-31 14:07 | Outpatient (CLI) | payer MEDICARE, SELFPAY ==
[2019-07-31 13:35] VITALS: BMI 29.0
[2019-07-31 15:23] LABS: Absolute Lymphocyte Count 1.55 X10^3/uL (0.83-4.51); Absolute Neutrophil Count 5.7 X10^3/uL (2.0-7.7); Basophil# 0.05 X10^3/uL; Basophil% 0.6 % (0-1); Eosinophil# 0.36 X10^3/uL; Eosinophils% 4.3 % (0-5); Hematocrit 49.2 % (40-54); Hemoglobin 16.2 g/dL (13.0-16.5); Lymphocyte # 1.55 X10^3/ul (4.0); Lymphocyte % 18.6 % (19-41); Mean Corp Hgb Conc 32.9 g/dL (32-36); Mean Corpuscular Hgb 31.3 pg (27.0-32.0); Mean Corpuscular Volume 95.2 fL (80-94); Mean Platelet Vol. 9.1 fl (6.2-12.0); Monocyte# 0.63 X10^3/uL; Monocyte% 7.5 % (0-10); NRBC Flagged by Analyzer 0 % (0-5); Neutrophil # 5.72 X10^3/uL (2.7-7.7); Neutrophil % 68.5 % (47-70); Platelet Count 363 K/mm3 (150-450); RBC Distribution Width CV 12.6 % (11.6-14.6); RBC Distribution Width SD 44.3 fl (35.1-43.9); Red Blood Count 5.17 M/mm3 (4.6-6.2); White Blood Count 8.4 K/mm3 (4.4-11.0)
[2019-07-31 16:31] LABS: Anion Gap 10 (5-15); BUN 13 mg/dL (7-18); BUN/Creat Ratio 7.4 RATIO (10-20); Calcium,Total 9.7 mg/dL (8.5-10.1); Chloride 104 mmol/L (98-107); Creatinine, Serum 1.75 mg/dL (0.70-1.30); EST Glomerular Filtration Rate 40 mL/min (>60); Est Glom Filt Rate - Afr Amer 49 mL/min (>60); Glucose 226 mg/dL (74-106); Potassium 4.4 mmol/L (3.5-5.1); Sodium Level 138 mmol/L (136-145); T4 Total, Thyroxin 12.4 ug/dL (4.5-12.1); Thyroid Stim Hormone (TSH) 1.32 uIU/mL (0.358-3.74)
== END ==
PROVIDERS: Family Provider Family Medicine Geriatric Medicine; PCP Family Medicine Geriatric Medicine; Referring Provider Internal Medicine Cardiovascular Disease; Visit Provider Internal Medicine Cardiovascular Disease
DX: I25.10 Atherosclerotic heart disease of native coronary artery without angina pectoris (principal); I48.0 Paroxysmal atrial fibrillation; I49.01 Ventricular fibrillation; R53.83 Other fatigue; E78.5 Hyperlipidemia, unspecified; I25.2 Old myocardial infarction
CPT/HCPCS: 36415; 80048; 82533; 83735; 84436; 84443; 85025

== ENCOUNTER → 2020-07-02 14:56 | Outpatient (CLI) | payer MEDICARE, SELFPAY ==
[2020-02-08 11:51] VITALS: BMI 27.2
[2020-07-02 17:17] LABS: Absolute Lymphocyte Count 1.76 X10^3/uL (0.83-4.51); Basophil# 0.04 X10^3/uL; Basophil% 0.5 % (0-1); Eosinophils% 3.8 % (0-5); Hematocrit 48.8 % (40-54); Hemoglobin 16.6 g/dL (13.0-16.5); Lymphocyte # 1.76 X10^3/ul (4.0); Lymphocyte % 22.2 % (19-41); Mean Corpuscular Hgb 31.6 pg (27.0-32.0); Mean Corpuscular Volume 92.8 fL (80-94); Monocyte# 0.76 X10^3/uL; Monocyte% 9.6 % (0-10); NRBC Flagged by Analyzer 0 % (0-5); Neutrophil # 5.04 X10^3/uL (2.7-7.7); Neutrophil % 63.5 % (47-70); Platelet Count 354 K/mm3 (150-450); RBC Distribution Width CV 12.2 % (11.6-14.6); Red Blood Count 5.26 M/mm3 (4.6-6.2); White Blood Count 7.9 K/mm3 (4.4-11.0)
[2020-07-02 17:22] LABS: Vitamin D,25 Hydroxy 33.5 ng/mL
[2020-07-02 17:25] LABS: ALB/GLOB Ratio 0.8 RATIO (0.9-2.4); AST(SGOT) 20 U/L (15-37); Alanine Aminotransfer ALT/SGPT 27 U/L (16-61); Albumin, Serum 3.2 g/dL (3.2-5.0); Alkaline Phosphatase 122 U/L (45-117); Anion Gap 6 (5-15); BUN 12 mg/dL (7-18); BUN/Creat Ratio 7.7 RATIO (10-20); Calcium,Total 9.1 mg/dL (8.5-10.1); Chloride 107 mmol/L (98-107); Creatinine, Serum 1.56 mg/dL (0.70-1.30); EST Glomerular Filtration Rate 46 mL/min (>60); Est Glom Filt Rate - Afr Amer 56 mL/min (>60); Globulin 3.9 g/dL (2.2-4.2); Glucose 109 mg/dL (74-106); Potassium 4.4 mmol/L (3.5-5.1); Protein, Total 7.1 g/dL (6.4-8.2); Sodium Level 139 mmol/L (136-145); Thyroid Stim Hormone (TSH) 1.32 uIU/mL (0.358-3.74)
== END ==
PROVIDERS: PCP Family Medicine Geriatric Medicine; Visit Provider Family Medicine Geriatric Medicine
DX: I10 Essential (primary) hypertension (principal); E55.9 Vitamin D deficiency, unspecified
CPT/HCPCS: 36415; 80053; 82306; 84443; 85025

== ENCOUNTER → 2020-10-03 09:39 | Outpatient (CLI) | payer MEDICARE, SELFPAY ==
[2020-02-08 11:51] VITALS: BMI 27.2
[2020-08-09 14:00] VITALS: BMI 27.5
--- NOTE | 2020-10-03 09:45 | RAD_ITS ---
STUDY: X-RAY - ESOPHAGUS (BARIUM SWALLOW) WITH FLUOROSCOPY REASON FOR EXAM: Male, 80 years old. DIFFICULTY SWALLOWING AND KEEPING FOOD DOWN TECHNIQUE: 22 view(s) of the esophagus were obtained following swallowing of barium. FLUOROSCOPY TIME (if supplied): (1:00) minutes/seconds COMPARISON: None. FINDINGS: There is no demonstrated esophageal foreign body. There is evidence of a circumferential narrowing of the distal esophagus just proximal to the gastroesophageal junction. The patient ingested a 12 mm tablet of barium. The tablet is capped at that level. Endoscopic correlation is recommended. There is atherosclerotic tortuosity of the aortic arch and descending thoracic aorta. Normal visualized pulmonary parenchyma. There are diffuse degenerative changes of the visualized thoracic spine. RAD/Esophagus Dual Contrast IMPRESSION: Circumferential narrowing of the distal esophagus just proximal to the gastroesophageal junction. There is trapping of the ingested 12 mm tablet of barium. Correlation with endoscopy is recommended. Electronically Signed: Rubio Young MD at 10:17 EST , Service support ,
== END ==
PROVIDERS: PCP Family Medicine Geriatric Medicine; Referring Provider Family Medicine Geriatric Medicine; Visit Provider Family Medicine Geriatric Medicine
DX: R13.10 Dysphagia, unspecified (principal)
CPT/HCPCS: 74221

== ENCOUNTER → 2020-10-28 14:00 | Outpatient (CLI) | payer MEDICARE, SELFPAY ==
[2020-08-09 14:00] VITALS: BMI 27.5
== END ==
PROVIDERS: PCP Family Medicine Geriatric Medicine; Referring Provider Internal Medicine Gastroenterology; Visit Provider Internal Medicine Gastroenterology
DX: Z11.59 Encounter for screening for other viral diseases (principal)
CPT/HCPCS: 87635; C9803; U0005; U0003

== ENCOUNTER → 2021-02-06 15:14 | Outpatient (CLI) | payer MEDICARE, SELFPAY ==
[2021-02-06 14:22] VITALS: BMI 29.4
[2021-02-06 15:55] LABS: Absolute Lymphocyte Count 1.58 X10^3/uL (0.83-4.51); Absolute Neutrophil Count 5.2 X10^3/uL (2.0-7.7); Basophil# 0.06 X10^3/uL; Basophil% 0.7 % (0-1); Eosinophil# 0.43 X10^3/uL; Eosinophils% 5.3 % (0-5); Hematocrit 48.2 % (40-54); Lymphocyte # 1.58 X10^3/ul (0.83-4.51); Lymphocyte % 19.5 % (19-41); Mean Corp Hgb Conc 33.2 g/dL (32-36); Mean Corpuscular Hgb 31.2 pg (27.0-32.0); Monocyte# 0.85 X10^3/uL; Monocyte% 10.5 % (0-10); NRBC Flagged by Analyzer 0 % (0-5); Neutrophil # 5.15 X10^3/uL (2.7-7.7); Neutrophil % 63.5 % (47-70); Platelet Count 302 K/mm3 (150-450); RBC Distribution Width CV 12.4 % (11.6-14.6); Red Blood Count 5.13 M/mm3 (4.6-6.2); White Blood Count 8.1 K/mm3 (4.4-11.0)
[2021-02-06 16:39] LABS: BNP,B-Type NATRIURETIC PEPTIDE 34.8 pg/mL (0-100)
[2021-02-06 16:47] LABS: Anion Gap 5 (5-15); BUN 18 mg/dL (7-18); BUN/Creat Ratio 10.3 RATIO (10-20); Calcium,Total 9.5 mg/dL (8.5-10.1); Chloride 106 mmol/L (98-107); Creatinine, Serum 1.74 mg/dL (0.70-1.30); EST Glomerular Filtration Rate 41 mL/min (>60); Est Glom Filt Rate - Afr Amer 49 mL/min (>60); Glucose 101 mg/dL (74-106); Potassium 4.4 mmol/L (3.5-5.1); Sodium Level 140 mmol/L (136-145); Thyroid Stim Hormone (TSH) 2.19 uIU/mL (0.358-3.74)
== END ==
PROVIDERS: PCP Family Medicine Geriatric Medicine; Referring Provider Internal Medicine Cardiovascular Disease; Visit Provider Internal Medicine Cardiovascular Disease
DX: I25.10 Atherosclerotic heart disease of native coronary artery without angina pectoris (principal); I10 Essential (primary) hypertension; E78.00 Pure hypercholesterolemia, unspecified; R06.00 Dyspnea, unspecified; I25.2 Old myocardial infarction; Z95.1 Presence of aortocoronary bypass graft; Z98.61 Coronary angioplasty status
CPT/HCPCS: 36415; 80048; 83880; 84443; 85025

== ENCOUNTER → 2021-02-19 12:44 | Outpatient (CLI) | payer MEDICARE, SELFPAY ==
[2021-02-06 14:22] VITALS: BMI 29.4
--- NOTE | 2021-02-19 12:45 | ECHOCS_ITS ---
Reason For Study: s/p CABG Procedure This was a 2D Doppler, Color Flow transthoracic echocardiogram. The study was technically difficult. Patient was unable to raise left arm due to shoulder pain. Contrast injection performed. Exam performed in department. Left Ventricle Normal LV size. Mild concentric left ventricular hypertrophy. Stage 1 diastolic dysfunction. Left ventricular systolic function is normal. The estimated ejection fraction is 60 %. No regional wall motion abnormalities noted. Right Ventricle Normal RV size. Normal systolic function. Atria Normal left atrium. Normal right atrium. Mitral Valve Normal mitral valve. Tricuspid Valve Normal tricuspid valve. Aortic Valve Trisinus/trileaflet aortic valve. Mild focal aortic valve calcification. Great Vessels Normal aortic root. The pulmonary artery is normal size. Normal inferior vena cava. Pericardium/Pleural No pericardial effusion. Medication 22 gauge I.V. with prn adaptor inserted into right arm. Diluted definity 3ml given slow IV push to enhance endocardial definition. MMode/2D Measurements & Calculations LVIDd: 4.0 cm IVSd: 1.4 cm LA dimension: 4.0 cm LVIDs: 2.7 cm LVPWd: 1.2 cm FS: 32.9 % LAV(MOD-bp): 40.5 ml LA A4 area: 14.8 cm2 RA A4 area: 10.5 cm2 LAV(MOD-bp) Indexed: 19.2 ml/m2 LAV(MOD-sp2): 43.7 ml LAV(MOD-sp4): 37.6 ml Time Measurements MV dec time: 0.24 sec Doppler Measurements & Calculations MV E max julian: 40.4 cm/sec Lat Peak E' Julian: 7.4 cm/sec Med Peak E' Julian: 5.4 cm/sec MV A max jluian: 57.9 cm/sec E/E' lat: 5.5 E/E' med: 7.5 MV E/A: 0.70 MV V2 max: 71.0 cm/sec MV P1/2t max julian: 54.4 cm/sec Ao V2 max: 77.5 cm/sec MV max P.0 mmHg MV P1/2t: 67.6 msec Ao max P.4 mmHg MV V2 mean: 31.7 cm/sec MV dec slope: 235.5 cm/sec2 MV mean P.49 mmHg MVA(P1/2t): 3.3 cm2 MV V2 VTI: 21.3 cm LV V1 max: 76.7 cm/sec PA V2 max: 87.6 cm/sec LV V1 max P.4 mmHg ECHO/Echo Complete W/ Contrast Interpretation Summary Normal LV size. Mild concentric left ventricular hypertrophy. Stage 1 diastolic dysfunction. Left ventricular systolic function is normal. The estimated ejection fraction is 60 %. Contrast injection was performed. Ordering Physician: Dipak Garber Referring Physician: Hannah Jacques Performed By: Carlos Enrique Malik RCS
== END ==
PROVIDERS: PCP Internal Medicine; Referring Provider Internal Medicine Cardiovascular Disease; Visit Provider Internal Medicine Cardiovascular Disease
DX: R06.00 Dyspnea, unspecified (principal); Z95.1 Presence of aortocoronary bypass graft
CPT/HCPCS: 93306; Q9957; A4216; C8929; J3490